=== PATIENT | male | born 1970 | race Caucasian/White ===

== ENCOUNTER 2016-08-23 08:55 | Inpatient (IN) | payer OTHER ==
--- NOTE | 2016-08-19 17:46 | HP ---
DATE OF ADMISSION: 08/23/2016 HISTORY OF PRESENT ILLNESS: This is a 46-year-old male diagnosed with spinal stenosis. He is statu s post a slip and fall with injury to his back and diagnosed at that time with a sprain of the ligam ents of lumbar spine and intervertebral disk displacement of the lumbosacral region. Also diagnosed Schmorl nodes. He has failed medical management and is scheduled for microdiskectomy at the L5-S1. On 08/23/2016, operating surgeon will be Dr. Gael Daily. PAST MEDICAL HISTORY: No medical illnesses. PAST SURGICAL HISTORY: No surgical illnesses. Injuries as mentioned in HPI, a slip backward injuri ng his low back. ALLERGIES: NO KNOWN DRUG ALLERGIES. MEDICATIONS: He is currently taking Temazepam to sleep at night and tramadol for the pain. FAMILY HISTORY: Father is alive at age of 84, no health issues. Mother is at the age of 7 5 due to uterine cancer. He has 15 siblings mostly healthy, one diagnosed with lupus. He has a anabell ghter and twin sons who are both the age of 12 and healthy. is alive and well. SOCIAL HABITS: He used to smoke about 5 cigarettes a day, but quit approximately 3 years ago. Bryan es any alcohol consumption and drinks about 1 to 2 cups of coffee a day and sleeps approximately 10 to 8 hours a night, occasionally interrupted secondary to the pain. REVIEW OF SYSTEMS: HEENT: Asymptomatic. CARDIORESPIRATORY: Asymptomatic. GASTROINTESTINAL: Occasional constipation secondary to the pain medications. GENITOURINARY: Asymptomatic. MUSCULOSKELETAL: Lower extremity tingling and numbness with weakness of his lower extremities. Sta amina that this is the result of his back discomfort. NEUROPSYCHIATRIC: Once again lower extremity tingling, numbness with weakness secondary to his back injury. GENERAL: He has unintentionally lost 8 pounds in preparation for his surgery and to improve his low back symptoms of pain. PHYSICAL EXAMINATION: GENERAL: He is awake, alert and oriented x4. VITAL SIGNS: Blood pressure 140/86, pulse 74, temperature 98.5. Height: 67-1/2 inches, weighs 243 pounds. He is well developed and well-nourished male in no acute distress. HEENT: Pupils equal, round, reactive to light and accommodation. Extraocular muscles are intact. Fundi normal vessels with no hemorrhages, exudates, or papilledema. Ears: Tympanic membranes are i ntact. No lesions at present. Mouth: Mucous membranes are moist. NECK: Supple, no JVD, no bruit, no goiter. No venous distention. No masses. BACK: Nontender. LUNGS: Clear to auscultation. CARDIAC: Sinus rhythm, no cardiac enlargement. No thrills, murmurs, rubs or gallops. ABDOMEN: No masses, tenderness or rigidity, soft to palpation. Liver, kidneys and spleen are not p alpable. There is no hernia is noted. Normal audible bowel sounds. No bruits are heard. General exam has been deferred. EXTREMITIES: No clubbing, cyanosis or edema. Pulses are bilaterally equal. SKIN: Normal texture. No rashes or bruising noted. NEUROLOGIC: Cranial intact. Normal strength bilaterally. Sensory position touch and vibration are intact. Reflexes are equal bilaterally. Plantar reflexes are flexor LABORATORY DATA: Drawn today. Chemistries looks normal. CBC is normal. Bleeding time is not prol onged. Urine is normal. EKG: Sinus rhythm. Chest x-ray: No acute cardiopulmonary findings. ASSESSMENT AND PLAN: A 46-year-old male with a diagnosis of spinal stenosis, scheduled for microdis kectomy of L5-S1. The patient without previous medical history now on medications solely for pain a nd insomnia. BP today is slightly above target, but this could be white coat syndrome. Otherwise, he appears to be clinically stable and is a low risk candidate for scheduled procedure. Recommend to proceed as planned. Preop instructions have been briefly reviewed with the patient. As mentione d above, the patient is clinically stable for scheduled surgery. Dictated By: VIN CRAIN/TIN Conf#: [id number] DID#: [id number]
[2016-08-20 15:39] VITALS: Ht 170.2 cm; Wt 109.0 kg
[2016-08-23] VITALS (25 sets, daily range): BP systolic 110–138; BP diastolic 65–84; PULSE 64–110; RESP 12–21
[~2016-08-23] VITALS: Ht 170.2 cm; Wt 109.0 kg
[2016-08-23] MEDS ORDERED: CEFAZOLIN 2 GM/50 ML (PMX) 50 ML IVPB SCH (09:30)
[2016-08-23] MEDS ORDERED: LACTATED RINGER'S 1,000 ML IV* SCH (09:30)
[2016-08-23] MEDS ORDERED: TEMA7.5C PO (10:06)
[2016-08-23] MEDS ORDERED: ACET325T33 PO (10:08)
[2016-08-23] MEDS ORDERED: TRAM50TA2 PO (10:08)
[2016-08-23] MEDS ORDERED: PROPOFOL 20 ML ONE ×2 (11:55→16:00)
[2016-08-23] MEDS ORDERED: SUCCINYLCHOLINE CHLORIDE 100 MG/5 ML SYG IV ONE (11:55)
[2016-08-23] MEDS ORDERED: LIDOCAINE 100 MG SYRINGE ONE (11:55)
[2016-08-23] MEDS ORDERED: FENTAnyl 50 MCG/ML VIAL ONE ×2 (11:55→16:24)
[2016-08-23] MEDS ORDERED: MIDAZOLAM 1 MG/ML 2 ML INJ ONE (11:55)
[2016-08-23] MEDS ORDERED: ROCURONIUM 50 MG INJ ONE (11:55)
[2016-08-23] MEDS ORDERED: METOCLOPRAMIDE 10 MG INJ IV PRN (12:00)
[2016-08-23] MEDS ORDERED: DIPHENHYDRAMINE 50 MG INJ IV PRN (12:00)
[2016-08-23] MEDS ORDERED: HYDROmorphONE (0.2 MG/ML) 10ML SYG IV PRN ×2 (12:00)
[2016-08-23] MEDS ORDERED: FENTAnyl 50 MCG/ML VIAL IV PRN (12:00)
[2016-08-23] MEDS ORDERED: OXYCODONE/ACETAMINOPHEN (5/325) TAB PO PRN ×2 (12:00)
[2016-08-23] MEDS ORDERED: ONDANSETRON 4 MG INJ IV PRN ×2 (12:00→17:00)
[2016-08-23] MEDS ORDERED: MEPERIDINE 25 MG INJ IV PRN (12:00)
[2016-08-23] MEDS ORDERED: PROCHLORPERAZINE 10 MG INJ IV PRN (12:00)
[2016-08-23] MEDS ORDERED: OCULAR LUBRICANT 3.5 GM OPH OINT ONE (12:01)
--- NOTE | 2016-08-23 13:45 | HPN ---
Date/Time of Note Date/Time of Note DATE: 08/23/16 TIME: 13:45 Interval H&P Admission Note Pt. seen H&P reviewed: No system changes HOANG RUIZ MD Aug 23, 2016 13:45
[2016-08-23] MEDS ORDERED: BUPIVACAINE 0.25% (MPF) 10 ML 10 ML VIAL ONE (15:14)
[2016-08-23] MEDS ORDERED: ONDANSETRON 4 MG INJ ONE ×2 (15:17→16:24)
[2016-08-23] MEDS ORDERED: DEXAMETHASONE 4 MG/ML 1 ML INJ ONE (15:17)
[2016-08-23] MEDS ORDERED: POLYMYXIN/BACITRACIN 1L IRRIG IRR ONE (15:40)
[2016-08-23] MEDS ORDERED: PHENYLephrine (100 MCG/ML) 5ML SYG ONE (15:43)
[2016-08-23] MEDS ORDERED: GLYCOPYRROLATE 1 MG INJ ONE (16:27)
[2016-08-23] MEDS ORDERED: NEOSTIGMINE 3 MG/3 ML SYRINGE ONE (16:27)
--- NOTE | 2016-08-23 16:45 | RADRPT ---
PROCEDURE: XR Lumbar Spine one view. CLINICAL INDICATION: Low back pain. Intraoperative. TECHNIQUE: Prone portable cross-table lateral. COMPARISON: Prior study done earlier the same day. FINDINGS: For the purposes of this report, the last apparent true disc level is considered to be L5-S1. Based on this, the posterior surgical instrument is present overlying the L5-S1 level. IMPRESSION: 1. Intraoperative imaging as described above. RPTAT: QQ .Juarez Marquez MD, MD Date Time Electronically viewed and signed by .Juarez Marquez MD, on 08/23/2016 16:45 .R/
--- NOTE | 2016-08-23 16:51 | RADRPT ---
PROCEDURE: XR Lumbar Spine one view. CLINICAL INDICATION: Low back pain. Intraoperative. TECHNIQUE: Prone portable cross-table lateral. COMPARISON: No prior studies are available for comparison. FINDINGS: For the purposes of this report, the last apparent true disc level is considered to be L5-S1. Based on this, the posterior needle markers are present at the upper L4 and upper L5 levels. IMPRESSION: 1. Intraoperative imaging as described above. RPTAT: QQ .Juarez Marquez MD, MD Date Time Electronically viewed and signed by .Juarez Marquez MD, MD on 08/23/2016 16:51 .R/
[2016-08-23] MEDS ORDERED: CEPASTAT LOZENGE MT PRN (17:00)
[2016-08-23] MEDS ORDERED: NALOXONE (0.4 MG/ML) INJ IV PRN (17:00)
[2016-08-23] MEDS ORDERED: ZOLPIDEM 5 MG TAB PO PRN (17:00)
[2016-08-23] MEDS ORDERED: BETHANECHOL 25 MG TAB PO PRN (17:00)
[2016-08-23] MEDS ORDERED: ACETAMINOPHEN 325 MG TAB PO PRN (17:00)
[2016-08-23] MEDS ORDERED: DIAZEPAM 5 MG/ML SYG IM PRN (17:00)
[2016-08-23] MEDS ORDERED: DIAZEPAM 5 MG TAB PO PRN (17:00)
[2016-08-23] MEDS ORDERED: AL HYDROX/MG HYDROX/SIMETH 30 ML CUP PO PRN (17:00)
[2016-08-23] MEDS ORDERED: HYDROCODONE/APAP (5/325) TAB PO PRN ×2 (17:00)
[2016-08-23] MEDS ORDERED: PROCHLORPERAZINE 10 MG TAB PO PRN (17:00)
[2016-08-23] MEDS ORDERED: TRIMETHOBENZAMIDE 100 MG/ML VIAL IM PRN (17:00)
[2016-08-23] MEDS ORDERED: NACL 0.9% 3 ML SYG IV SCH (17:00)
[2016-08-23] MEDS ORDERED: DIPHENHYDRAMINE 50 MG CAP PO PRN (17:00)
[2016-08-23] MEDS ORDERED: HYDROmorphONE 0.2 MG/ML PCA IV SCH (17:00)
--- NOTE | 2016-08-23 17:06 | OPPN ---
Date/Time of Note Date/Time of Note DATE: 08/23/16 TIME: 17:02 Operative/Procedure Note Pre-Operative Diagnosis Herniated lumbar disc L5-S1 left Foraminal stenosis L5-S1 left Post-Operative Diagnosis Same Procedure Left hemilaminotomy L5 Microdiscectomy L5-S1 on the left Baxano transforaminal root decompression of the left L5 nerve Medial facetectomy and foraminotomy L5-S1 left Cosmetic wound closure (5 cm) Lateral localizing lumbar radiographs (2) Intraoperative nerve monitoring (150 minutes) Surgeon: HOANG RUIZ MD Client Experience Manager: LEONID ROSS Anesthesiologist: RONNIE TATUM MD Findings At surgery, a herniation of the L5-S1 disc on the left was confirmed. Marked foraminal stenosis at L5-S1 left was also confirmed. Blood Usage/Administration None Implants/Grafts: Not applicable Estimated blood loss: 10 - 50 ml's Drains 2 medium Hemovac drains were employed Specimens Disc material L5-S1 on the left Complications: None Anesthesia type: general HOANG RUIZ MD Aug 23, 2016 17:06
[2016-08-23] MEDS: CEFAZOLIN 1 GM/50 ML (PMX) 50 ML IVPB SCH (18:04)
--- NOTE | 2016-08-23 20:40 | OPR ---
DATE OF OPERATION: 08/23/2016 PREOPERATIVE DIAGNOSIS: Herniated disk L5-S1 on the left with foraminal stenosis. POSTOPERATIVE DIAGNOSIS: Herniated disk L5-S1 on the left with foraminal stenosis. OPERATION PROCEDURES: On 08/23, the patient underwent the following operative procedures: 1. Left hemilaminotomy, L5. 2. Microdiskectomy, L5-S1 on the left. 3. Medial facetectomy and foraminotomy, L5-S1 on the left. 4. Baxano transforaminal root decompression, L5 on the left. 5. Cosmetic wound closure (5 cm). 6. Lateral localized lumbar radiographs (2). SURGEON: Gael Daily MD EXERCISE MANAGER: Maria Alejandra Saavedra PA-C ANESTHESIA: General endotracheal. ANESTHESIOLOGIST: Wendy Morejon MD ESTIMATED BLOOD LOSS: 20 mL, none replaced. DRAINS: Two medium Hemovac drains employed. COMPLICATIONS: None. PERTINENT HISTORY AND PHYSICAL: This is a 46-year-old male who sustained an injury to his back in t [employer] course of employment on 08/14/2015. He has had appropriate conservative care since that time, s remained symptomatic with back and left leg pain which has been unrelieved by conservative managem ent. He has undergone a number of diagnostic studies including an MRI of the lumbar spine which dem onstrated herniation of the L5-S1 disk on the left with marked foraminal stenosis. Treatment option s were discussed with the patient, who elected to proceed with surgery. OPERATIVE FINDINGS AT SURGERY: The patient had a small left foraminal herniation, L5-S1 with marked foraminal stenosis. His baseline intraoperative nerve testing revealed a decrease in the left L5 p otential of 30% and the left S1 potential of 60%. These both returned to normal at the completion o f surgery. OPERATIVE PROCEDURE: With the patient in supine position after satisfactory induction of general en dotracheal anesthesia by Dr. Morejon, the patient was turned to the prone kneeling position onto the [facility] frame. All pressure points were carefully padded. The back was prepped and draped in usual sterile fashion. Athrombic pumps were applied to legs below the knees to prevent venous stasis duri ng and after procedure. Two spinal needles placed next to what was felt to be the L4 and L5 spinous processes, lateral roentgenogram was taken to confirm anatomic localization. A 2.6 cm incision the n carried midline over the spinous process of L5 after skin was infiltrated with 0.25% Marcaine with out epinephrine for postoperative analgesia. Superficial retractors were placed and hemostasis secu red with electrocautery. Throughout procedure, copious amounts of antibacterial irrigating solution used to periodically irrigate the wound. The fascia was incised midline with a hot knife and unila teral subperiosteal dissection carried out at L5-S1 on the left. Deep retractors were placed and de ep hemostasis secured with electrocautery. A second intraoperative radiograph was taken with deep r etractor at what was felt to be the L5-S1 interspace. This was confirmed with second x-ray. A left hemilaminotomy at L5 was then carried out using Leksell rongeur, Kerrison punches and curettes. Li gamentum flavum was excised with sharp dissection. The operating microscope was then [facility] into [facility]. A medial facetectomy and foraminotomy was accomplished using small hand osteo mallet, Kerrison punches and curettes. The S1 root was then mobilized medially and protected with a D'Errico nerve r etractor using microdissection technique. This revealed a herniation of the L5-S1 disk on the left extending out into the foramen. A 15 blade knife used to cut a rectangular window in the annulus an d posterior longitudinal ligament, and multiple ____ disk fragments were harvested with pituitary ro ngeurs and sent to laboratory for pathologic study. Additional fragments were harvested using Epste in curettes. A thorough search of ____ canal was made with an arthroscopic probe. No additional fr agments were encountered. The epidural hemostasis was secured with bipolar electrocautery on low se tting. At this point there still appeared to be some distal foraminal stenosis at L5-S1 on the left , and the Baxano instrumentation was brought onto the field. The Ipsi probe was placed into the for amen and the guidewire passed in the usual fashion. The neuromonitoring probe was then inserted int o the foramen to isolate the exiting L5 nerve root. With this having been assured, a 7.5 mm Baxano rasp was inserted into the foramen and multiple reciprocations carried out to enlarge the posterior aspect of the foramen. The instrumentation was withdrawn. The foramen was flushed with 20 mL of ir rigating solution and hemostasis secured with bipolar electrocautery on low setting. The anesthesio logist was asked to perform a Valsalva maneuver at 40 mmHg. No spinal fluid leak was noted. The wo und was then closed in layers over 2 medium Hemovac drains using #1 Stratafix sutures in deep paralu mbar musculature and deep fascia of back, 2-0 Stratafix sutures in subcutaneous tissue and a 4-0 Ezekiel ryl subcuticular cosmetic closing suture on the skin. Dermabond and sterile compressive dressings w ere applied. The patient, having tolerated procedure well, was then returned to supine position ont o his bed and extubated by Dr. Morejon. He was transported to the recovery room in [facility]. At the conclusion of procedure, sponge, instrument and needle counts were all correct. NEED FOR EHR TRAINER: During this spinal surgical procedure, my retail event and sales assistant was used to retrac t and protect the spinal nerves and dural sac. My retail event and sales assistant also employed the suction catheters to e vacuate blood from the surgical field to improve visualization of the neural structures. The assista nt was medically necessary to facilitate the completion of the surgery in a safe and expeditious man ner. State of [place] regulations, as well as hospital bylaws, preclude the use of non-licensed [facility] care personnel such as operating room technicians, to perform these functions. Throughout the procedure, neuromonitoring was carried out by [facility] [employer] in cluding EMG, SSEP and MEP monitoring of the L3, L4, L5 and S1 nerve roots bilaterally along with spi nal cord potentials. These were interpreted by a neurologist employed by [employer]. Dictated By: GAEL DAILY MD TM/NTS Conf#: [id number] DID#: [id number] CC: VIN EPSTEIN MD;*EndCC*
[2016-08-23] MEDS: RANITIDINE 150 MG TAB PO SCH (21:01)
[2016-08-23] MEDS: DEXTROSE 5%-0.45% NACL 1,000 ML IV SCH (21:02)
--- NOTE | 2016-08-23 21:13 | CONS ---
DATE OF ADMISSION: 08/23/2016 DATE OF CONSULTATION: The patient had surgery with Dr. Gael Daily 08/23/2016. Patient seen in the recovery room quite alert, no particular complaints. The patient speaks Mozambican . In response to how he is doing, he said he is doing okay and I assured him that his vital signs a nd everything looked fine postoperatively for which he was in recognition. PHYSICAL EXAMINATION: VITAL SIGNS: Revealed a blood pressure of 127/72, respirations 18, temperature 98, O2 saturation 98 %, pulse rate was approximately 72. HEENT: Unremarkable. LUNGS: Clear. HEART: Revealed a regular rhythm. IMPRESSION: 1. Status lumbar spine surgery. 2. Stable medical health. DISCUSSION: Plan is to follow him along with you during his stay at [facility]. So far, t he patient has tolerated procedure well. Thank you again, Dr. Daily, for allowing us to participate in care of this patient. Dictated By: JUDE ANN/TIN Conf#: [id number] DID#: [id number]
[2016-08-24] VITALS: BP 116/62; PULSE 91; RESP 16
[2016-08-24] MEDS: CEFAZOLIN 1 GM/50 ML (PMX) 50 ML IVPB SCH ×3 (00:46→12:10)
[2016-08-24] MEDS: DEXTROSE 5%-0.45% NACL 1,000 ML IV SCH (02:17)
[2016-08-24 05:47] LABS: POTASSIUM 4.1 mmol/L (3.5-5.1)
[2016-08-24 05:49] LABS: CREATININE 0.57 mg/dl (0.61-1.24)
[2016-08-24 05:50] LABS: CALCIUM 9.2 mg/dl (8.4-10.2)
[2016-08-24 06:17] LABS: HEMATOCRIT 42.6 % (42.0-52.0); HEMOGLOBIN 14.7 g/dl (14.0-18.0)
--- NOTE | 2016-08-24 07:22 | PN ---
Date/Time of Note Date/Time of Note DATE: 08/24/16 TIME: 07:20 Assessment/Plan Lines/Catheters IV Catheter Type (from Nrsg): Saline Lock Tariq in Place (from Nrsg): No Subjective 24 Hr Interval Summary The patient is postop day #1 following microdiscectomy L5-S1 on the left. He is resting comfortably in bed. Examination reveals neurovascular structures to be intact distally. His Hemovac has minimal drainage and has been removed. His wound is clean and dry and was redressed. His morning labs are unremarkable. He will be seen by physical therapy 3-4 times per day until he is cleared for discharge. He was given strict discharge precautions and instructions. Pain Control: well controlled Exam/Review of Systems Vital Signs Vitals Vital Signs Date Time Temp Pulse Resp B/P Pulse Ox O2 Delivery O2 Flow Rate FiO2 08/24/16 05:00 18 08/24/16 00:00 98.6 91 116/62 98 Nasal Cannula 2.0 Intake and Output 08/23/16 08/23/16 08/24/16 15:00 23:00 07:00 Intake Total 1700 ml 2190 ml Output Total 100 ml 1525 ml Balance 1600 ml 665 ml Results Result Diagram: 08/24/16 0415 08/24/16 0415 HOANG RUIZ MD Aug 24, 2016 07:22
[2016-08-24 07:59] VITALS: BP 126/69; RESP 18
[2016-08-24] MEDS ORDERED: BETHANECHOL 25 MG TAB PO PRN (08:00)
[2016-08-24] MEDS: FERROUS SULFATE (EC) 325 MG TAB PO SCH ×2 (08:15→12:09)
[2016-08-24] MEDS: RANITIDINE 150 MG TAB PO SCH (08:16)
[2016-08-24] MEDS ORDERED: ASCORBIC ACID 500 MG TAB PO SCH (09:00)
[2016-08-24] MEDS ORDERED: DOCUSATE SODIUM 100 MG CAP PO SCH (09:00)
--- NOTE | 2016-08-24 11:05 | CONS ---
DATE OF ADMISSION: 08/23/2016 DATE OF CONSULTATION: 08/24/2016 POSTOP CONSULT FOLLOWUP SUBJECTIVE: The patient is alert postoperatively. Questions asked via product/industry consultant. The yennifer mosquera had a relatively good night, has no major complaints at this particular point in time. PHYSICAL EXAMINATION: VITAL SIGNS: The patient's vital signs reveal the following. The patient's blood pressure 116/62, respirations 16, temperature 98.6, pulse 91, O2 saturation 98% on nasal cannula. HEENT: Unremarkable. LUNGS: Clear. HEART: Reveals a regular rhythm. ABDOMEN: Soft, bowel sounds noted. IMPRESSION: 1. Status post lumbar spine surgery. 2. Stable health. LABORATORY DATA: Review of laboratory and other data reveals the following: Hemoglobin 14.7, hemat ocrit 42.6. The patient's chemistries revealed normal electrolytes, BUN, creatinine. A random gluc ose is 122. DISCUSSION: As planned per Dr. Daily, patient will be ambulating today. So far patient is stabl e. Thank you again, Dr. Daily, for allowing us to participate in care of this patient. Dictated By: JUDE PARRA MD SS/NTS Conf#: [id number] DID#: [id number]
== END 2016-08-24 15:10 | disposition home or self-care (01) | DRG 520 ==
LOC: SDS 08:55 → MS1 17:01 → SDS 17:01 → MS1 18:45
PROVIDERS: ADMIT Orthopaedic Surgery; ATTEND Orthopaedic Surgery
PROC: 0SB40ZZ Excision of Lumbosacral Disc, Open Approach (ICD-10-PCS; principal; 2016-08-23 13:30)
DX: M51.27 Other intervertebral disc displacement, lumbosacral region (principal); M48.07 Spinal stenosis, lumbosacral region; Z87.891 Personal history of nicotine dependence
CPT/HCPCS: 72020; 80048; 85014; 85018; 86850; 86900; 86901; 86920; 97163; 97530; J0330; J0690; J1100; J1170; J2001; J2175; J2250; J2370; J2405; J2710; J3010; J7042